=== PATIENT | female | born 1955 | race African-American/Black ===

== ENCOUNTER 2016-12-07 13:21 | Emergency (ER) | payer MEDICAID ==
[~2016-12-07] VITALS: Ht 152.4 cm; Wt 100.7 kg
[2016-12-07 13:25] VITALS: BP 140/85
[2016-12-07] MEDS ORDERED: Ketorolac 60mg Inj IM ONE (13:45)
[2016-12-07] MEDS ORDERED: Solu-MEDROL 125mg Inj IM ONE (13:45)
--- NOTE | 2016-12-07 13:46 | Emergency Room Report ---
History of Present Illness General Chief Complaint: Upper Extremity Injury Source: Patient Present Illness HPI Patient is a 61-year-old female presents today with complaints of right shoulder pain that began 2 weeks ago. She states it is currently 7/10 in severity and she's been taking Tylenol and Motrin with some relief. She denies any traumas or injury. In denies numbness, tingling, loss of sensation. Allergies: Coded Allergies: No Known Allergies (Unverified , 12/07/16) Patient History Last Menstrual Period: na Reviewed Nursing Documentation: PMH: Agreed, PSxH: Agreed Nursing Documentation-PMH Past Medical History: No History, Except For Hx Hypertension: Yes Hx Diabetes: Yes Review of Systems Musculoskeletal: Reports: other - right arm pain All Other Systems: negative except mentioned in HPI Physical Exam Vital Signs Date Time Temp Pulse Resp B/P (MAP) Pulse Ox O2 Delivery O2 Flow Rate FiO2 12/07/16 13:25 98.2 82 18 140/85 98 Room Air Sp02 EP Interpretation: reviewed, normal General Appearance: no apparent distress, alert, GCS 15, non-toxic Head: normocephalic, atraumatic Eyes: bilateral eye normal inspection, bilateral eye PERRL ENT: hearing grossly normal, normal pharynx, no angioedema, normal voice Neck: full range of motion, supple/symm/no masses Respiratory: chest non-tender, lungs clear, normal breath sounds, speaking full sentences Cardiovascular #1: regular rate, rhythm, no edema Cardiovascular #2: 2+ carotid (R), 2+ carotid (L), 2+ radial (R), 2+ radial (L) , 2+ dorsalis pedis (R), 2+ dorsalis pedis (L) Gastrointestinal: normal bowel sounds, non tender, soft, non-distended, no guarding, no rebound Rectal: deferred Genitourinary: normal inspection, no CVA tenderness Musculoskeletal: back normal, gait/station normal, normal range of motion, non- tender, calf tenderness, other - decreased ROM with abduction and adduction of right arm, TTP over right AC joint Neurologic: alert, oriented x3, responsive, motor strength/tone normal, sensory intact, speech normal, other - NVI Psychiatric: judgement/insight normal, memory normal, mood/affect normal, no suicidal/homicidal ideation Reflexes: 3+ bicep (R), 3+ bicep (L), 3+ tricep (R), 3+ tricep (L), 3+ knee (R) , 3+ knee (L) Skin: normal color, no rash, warm/dry, well hydrated Lymphatic: no adenopathy Medical Decision Making PA Attestation Supervising physician is Dr. Santiago Diagnostic Impression: Primary Impression: Adhesive capsulitis of right shoulder ER Course Patient presents with right shoulder pain findings consistent with adhesive capsulitis. X-rays within normal limits. Patient given Toradol and Decadron with improvement of symptoms on reevaluation at 1430. Low index of suspicion for upper extremity DVT as pt has no edema, NVI and no overlying skin changes. Patient is discharged home with a short course of steroids, and tramadol and instructed to follow up with PCP for physical therapy. The patient understands and is agreeable to plan. Please note this report is being documented using [employer] technology. This can lead to erroneous entry secondary to incorrect interpretation by the dictating instrument. Other X-Ray Diagnostic Results Other X-Ray Diagnostic Results : X-Ray ordered: right shoulder # of Views/Limited Vs Complete: 3 View Indication: Pain EP Interpretation: Yes Interpretation: no dislocation, no soft tissue swelling, no fractures, other - age related changes Reevaluation Time: 14:30 Last Vital Signs Date Time Temp Pulse Resp B/P (MAP) Pulse Ox O2 Delivery O2 Flow Rate FiO2 12/07/16 13:25 98.2 82 18 140/85 98 Room Air Status: improved Disposition: HOME, SELF-CARE Condition: Stable Scripts Tramadol Hcl* (ULTRAM*) 50 Mg Tablet 50 MG ORAL Q6H Y for For Pain, #30 TAB 0 Refills Prov: Barbara Kelly P.A. 12/07/16 Prednisone* (PREDNISONE*) 20 Mg Tablet 40 MG ORAL DAILY for 4 Days, #4 TAB Prov: Barbara Kelly.A. 12/07/16 Patient Instructions: Adhesive Capsulitis Barbara Kelly Dec 07, 2016 13:46
[2016-12-07] MEDS ORDERED: PREDNISONE20 MG ORAL (14:32)
[2016-12-07] MEDS ORDERED: TRAMADOL HCL50 MG ORAL (14:32)
[2016-12-07 14:42] VITALS: BP 140/85
--- NOTE | 2016-12-08 11:06 | Diagnostic Imaging Report ---
Indication: PAIN Technique: 3 views of the right shoulder Comparison: none Findings: Slight irregularity of the humeral head in the region of the greater tuberosity, old Hill-Sachs deformity not excludable. No acute fractures. No dislocations. Impression:No acute process Questionable old Hill-Sachs deformity at correlate with any clinical history of prior dislocation This agrees with the preliminary interpretation provided by the emergency room physician.
== END 2016-12-07 15:30 | disposition home or self-care (01) ==
LOC: EMR 15:14
DX: M75.01 Adhesive capsulitis of right shoulder (principal); E11.9 Type 2 diabetes mellitus without complications; I10 Essential (primary) hypertension
CPT/HCPCS: 73030; 96372; 99284; J2930